=== PATIENT | female | born 1975 | race Two or more races ===

== ENCOUNTER 2017-03-31 09:23 | Emergency (ER) | payer OTHER ==
[~2017-03-31] VITALS: Ht 175.3 cm; Wt 145.4 kg
[~2017-03-31 09:23] MED LIST: CYA1000I IM; METF500T4 PO; OMEP20TA86 PO
[2017-03-31 09:30] VITALS: BP 138/76; PULSE 82; RESP 12; O2SAT 100
--- NOTE | 2017-03-31 09:32 | ED.REPORT ---
HPI-Abd Pain F Under 42 Date of Service Mar 31, 2017 ED Provider: Malick Zayas DO Pt is a 41 y/o female with a history of DM who presents to the ED c/o epigastric pain that radiates to her back onset 3 days ago that worsened last night. She reports that she has had ulcers before and is taking omeprazole for it. She states her symptoms get relieved with laying down, and is exacerbated by walking and eating spicy foods. Additional symptoms include nausea. She denies chest pain, diarrhea, vomiting, SOB, constipation, fever, cough, or any other symptoms. Nursing Notes Stated Complaint: STOMACH/BACK PAIN Chief Complaint: Female Abdominal Pain Nursing Notes Reviewed: Yes Allergies: Coded Allergies: No Known Allergies (Unverified , 03/22/17) Scheduled Cyanocobalamin (Cyanocobalamin Injection) 1,000 Mcg/1 Ml Vial 1,000 MCG IM prn Famotidine (Pepcid) 40 Mg Tablet 40 MG PO BID Metformin (Metformin) 500 Mg Tablet 1,000 MG PO BID Omeprazole (Omeprazole) 20 Mg Tablet.dr 20 MG PO BID General Time Seen by MD: 09:32 Chief Complaint Abdominal pain Hx Obtained From: Patient Arrived By: Walk-in Sudden in Onset?: No Onset Occurred: 3 days ago Location: : Epigastric Quality: Painful Radiation: : Back Severity: Current: Mild Severity: Maximum: Moderate Associated with: Reports: Nausea Exacerbated by: Eating (spicy foods), Walking Relieved by: Supine Recent Healthcare: No recent hospitalization, Recent doctor visit Similar Sx Previous: No Past Medical History Past Medical History chronic iron deficiency anemia- seen by Dr. Christensen Sleep apnea Irregular heartbeat Hx of heartburn Reports: Diabetes mellitus Past Surgical History EGD 04/2013-erosive gastropathy Smoking History Never Smoker Social History Alcohol Use: Denies alcohol use Drug Use: Denies drug use Ambulatory Status Independent Review of Systems Constitutional: Denies: Fever Respiratory: Denies: Non-productive cough, Prod cough, clear, Shortness of breath Cardiovascular: Denies: Chest pain GI: Reports: Abdominal pain (epigastric), Nausea, Denies: Constipation, Diarrhea, Vomiting Complete sys rev & neg: except as marked. Physical Exam Initial Vital Signs Vital Signs (First) Date Time Temp Pulse Resp B/P Pulse Ox O2 Delivery O2 Flow Rate FiO2 03/31/17 09:30 36.7 82 12 138/76 100 Room Air Initial VS: Reviewed Head / Eyes: Atraumatic, Normocephalic Neck: Supple, Full range of motion Skin: Warm, Dry, No cyanosis Neurologic: Alert, Oriented, Nonfocal Psychiatric: Mood/affect normal, Behavior normal, Normal thought content General/Constitutional: Awake, Alert Appearance / Presentation: Positive: Obese Respiratory / Chest: Atraumatic, Breath sounds NL, Breath sounds = bilat, No respiratory distress Cardiovascular: Heart rate NL, Regular rhythm, Heart sounds NL Abdomen: No guarding, No rebound Tenderness/Guarding/Rebound: Positive: Tender epigastric Back: Atraumatic, Full range of motion Interpretation & Diagnostics Lab Results Interpretation Result Diagram: 03/31/17 1000 03/31/17 1000 Test 03/31/17 10:00 03/31/17 10:31 White Blood Count 7.3th/mm3 (3.8-10.1) Red Blood Count 4.27mil/mm3 (3.90-5.20) Hemoglobin 8.9g/dL (12.0-15.6) Hematocrit 30.8% (35.0-46.0) Mean Corpuscular Volume 72.1fL (81-100) Mean Corpuscular Hemoglobin 20.8pg (27.0-35.0) Mean Corpuscular Hemoglobin Concent 28.9% (32.0-37.0) Red Cell Distribution Width 19.5% (12.3-15.4) Platelet Count 390bil/L (150-400) Neutrophils (%) (Auto) 63.5% (40-74) Lymphocytes (%) (Auto) 28.5% (14-46) Monocytes (%) (Auto) 5.1% (4-12) Eosinophils (%) (Auto) 2.3% (0-5) Basophils (%) (Auto) 0.5% (0-3) Sodium Level 136mEq/L (134-144) Potassium Level 3.7mEq/L (3.5-5.2) Chloride Level 101mEq/L (97-108) Carbon Dioxide Level 20mmol/L (18-29) Blood Urea Nitrogen 5mg/dL (6-20) Creatinine 0.47mg/dL (0.57-1.00) Estimat Glomerular Filtration Rate 211mL/min (>59) Glucose Level 169mg/dL (60-99) Calcium Level 8.8mg/dL (8.5-10.1) Total Bilirubin 0.2mg/dL (0.0-1.2) Aspartate Amino Transf (AST/SGOT) 28U/L (0-50) Alanine Aminotransferase (ALT/SGPT) 46U/L (0-32) Alkaline Phosphatase 64U/L (25-150) Total Protein 7.5g/dL (6.4-8.4) Albumin 4.0g/dL (3.4-5.0) Lipase 46U/L (13-60) Hold Urine Received (Received) ECG Interpretation ECG Interpretation: Sinus rhythm, rate 77 No acute ischemic changes Time: 09:50 Interpreted by: ED physician Re-Eval/Medical Decision Source of Hx: Old records Re-Evaluation/Progress : Time of Eval: 10:50 Patient Status: Condition improved Re-Evaluation/Progress Note: Patient rechecked. Discussed plan for discharge. Patient understands and agrees with plan. F/U instructions and RTER warnings given. All questions addressed at this time. Counseled Regarding: Diagnosis, Lab results, Need for follow-up, When/why to return to ED Discharge & Departure Primary Impression: Abdominal Pain, Epigastric Disposition: Home Discharge Condition All VS Reviewed: Yes Condition: Stable Additional Instructions: Begin taking Pepcid at night before bed. As needed use liquid [id number] antacids as directed to help with acid reflux symptoms. Call your regular doctor for follow-up over the next few days. Return to the ER as needed for worsening or concerning symptoms. Referrals: Beba Miller MD (PCP) Katieibe Attestation Portions of this note were transcribed by Megan Wray. I, Dr. Zayas, personally performed the history, physical exam and medical decision-making; I reviewed and confirmed the accuracy of the information in the transcribed note. Signed by Alicia Peña, 03/31/17. copies to: Beba Miller MDMalick Chambers Mar 31, 2017 09:32 Megan Wray Mar 31, 2017 09:39 Megan Wray Mar 31, 2017 09:39
[2017-03-31] MEDS ORDERED: LidocaineVisc 2%:Antacid 1:1 10 mL Syringe PO ONE (09:45)
[2017-03-31 10:12] LABS: BASOPHILS % (AUTO) 0.5 % (0-3); EOSINOPHILS % (AUTO) 2.3 % (0-5); MONOCYTES % (AUTO) 5.1 % (4-12); Mean Corpuscular Hemoglobin 20.8 pg (27.0-35.0); Mean Corpuscular Volume 72.1 fL (81-100); NEUTROPHILS % (AUTO) 63.5 % (40-74); Platelet Count 390 bil/L (150-400)
[2017-03-31] MEDS ORDERED: FAMO40TA72 PO (10:56)
[2017-03-31 11:07] VITALS: BP 127/69; PULSE 73; RESP 16; O2SAT 100
[2017-04-05] MEDS ORDERED: FAMO40TA6 PO (09:33)
== END 2017-03-31 11:08 | disposition home or self-care (01) ==
LOC: SED 09:23
DX: R10.13 Epigastric pain (principal); R11.0 Nausea; E11.9 Type 2 diabetes mellitus without complications; Z79.84 Long term (current) use of oral hypoglycemic drugs